=== PATIENT | female | born 1980 | race American Indian/Alaskan Native ===

== ENCOUNTER 2017-04-09 20:53 | Emergency (ER) | payer OTHER ==
[2017-04-09 21:07] VITALS: BP 116/98
[2017-04-09] MEDS ORDERED: LORazepam 2 MG/ML MDV IVPUSH ONE (21:17)
--- NOTE | 2017-04-09 22:09 | EDM.PDOC ---
ED HPI GENERAL MEDICAL PROBLEM - General Chief Complaint: Chest Pain Stated Complaint: CHEST PAIN Time Seen by Provider: 04/09/17 20:55 Source of Information: Reports: Patient History Limitations: Reports: No Limitations - History of Present Illness INITIAL COMMENTS - FREE TEXT/NARRATIVE: This is a 37-year-old female. She comes tonight because she had a sudden episode of sweating and feeling cold and being lightheaded and pressure in her left upper back. She also states that she felt short of breath. She was watching a movie at the time and denies any excessive activity. She's had no cough no fever no chills no congestion. She has been unwell putrid in which apparently cause some joint swelling and joint pain and now she is being weaned off the Wellbutrin by her doctor. She says she is on Wellbutrin for ADHD and has no history of anxiety. During the interview was noted that she sighed heavily multiple times. She has no recent illnesses that she is aware of no fever no chills no cough no congestion. She did not have any nausea or vomiting either tonight. Mid-Sternal Chest Pain Score (Numeric/FACES): 5 - Related Data Allergies Allergy/AdvReac Type Severity Reaction Status Date / Time metoclopramide HCl Allergy Swelling Verified 04/09/17 21:07 [From Reglan] Home Meds: Home Meds buPROPion HCl [Wellbutrin SR] 150 mg PO DAILY 04/09/17 [History] Past Medical History - Past Health History Medical/Surgical History: Denies Medical/Surgical History Other Gastrointestinal History: gastric bipass - Past Surgical History GI Surgical History: Reports: Bariatric Procedure, Cholecystectomy Social & Family History - Family History Family Medical History: Noncontributory Cardiac: Reports: Hypertension - Tobacco Use Smoking Status *Q: Never Smoker Second Hand Smoke Exposure: No - Caffeine Use Caffeine Use: Reports: Coffee - Alcohol Use Days Per Week of Alcohol Use: 0 - Recreational Drug Use Recreational Drug Use: No ED ROS GENERAL - Review of Systems Review Of Systems: See Below Constitutional: Denies: Fever, Chills HEENT: Reports: No Symptoms Respiratory: Reports: Shortness of Breath. Denies: Wheezing, Cough Cardiovascular: Reports: Lightheadedness. Denies: Chest Pain Endocrine: Reports: No Symptoms GI/Abdominal: Denies: Abdominal Pain, Diarrhea, Nausea, Vomiting : Reports: No Symptoms Musculoskeletal: Reports: Back Pain Skin: Reports: No Symptoms Neurological: Reports: No Symptoms Psychiatric: Reports: No Symptoms Hematologic/Lymphatic: Reports: No Symptoms ED EXAM, GENERAL - Physical Exam Exam: See Below Exam Limited By: No Limitations General Appearance: Alert, WD/WN, Anxious Eye Exam: Bilateral Eye: Normal Inspection Ears: Normal External Exam Nose: Normal Inspection Throat/Mouth: Normal Inspection, Normal Lips, Normal Voice Head: Atraumatic, Normocephalic Neck: Supple Respiratory/Chest: No Respiratory Distress, Lungs Clear, Normal Breath Sounds Cardiovascular: Regular Rate, Rhythm, No Murmur GI/Abdominal: Soft, Non-Tender Back Exam: Normal Inspection, Other (Her left upper back rhomboid muscles are very tender on palpation him and they also are somewhat tight and she describes when I palpate the area the pressure in her upper back) Extremities: Normal Inspection, Normal Range of Motion Neurological: Alert, Oriented Psychiatric: Anxious Skin Exam: Warm, Dry EKG INTERPRETATION EKG Date: 04/09/17 Time: 20:58 EKG Interpretation Comments: EKG shows a normal sinus rhythm there is no acute ST or T-wave changes no ischemic changes noted Course - Vital Signs Last Recorded V/S: Last Vital Signs Temp 97.1 F 04/09/17 21:00 Pulse 67 04/09/17 21:00 Resp 15 04/09/17 21:00 BP 116/98 H 04/09/17 21:00 Pulse Ox 100 04/09/17 21:00 - Orders/Labs/Meds Orders: Active Orders 24 hr Category Date Time Status EKG 12 Lead [EKG Documentation Completion] [RC] STAT Care 04/09/17 21:07 Active CXR [Chest 1V Frontal] [CR] Stat Exams 04/09/17 21:30 Taken Labs: Laboratory Tests 04/09/17 04/09/17 04/09/17 Range/Units 21:25 21:25 21:25 WBC 9.30 (3.98-10.04) K/mm3 RBC 4.63 (3.98-5.22) M/mm3 Hgb 13.8 (11.2-15.7) gm/L Hct 42.3 (34.1-44.9) % MCV 91.4 (79.4-94.8) fl MCH 29.8 (25.6-32.2) pg MCHC 32.6 (32.2-35.5) g/dl RDW Std Deviation 43.7 (36.4-46.3) fL Plt Count 349 (182-369) K/mm3 MPV 10.1 (9.4-12.3) fl Neut % (Auto) 58.2 (34.0-71.1) % Lymph % (Auto) 28.7 (19.3-51.7) % [place] % (Auto) 7.1 (4.7-12.5) % Eos % (Auto) 5.1 (0.7-5.8) Baso % (Auto) 0.6 (0.1-1.2) % Neut # (Auto) 5.41 (1.56-6.13) K/mm3 Lymph # (Auto) 2.67 (1.18-3.74) K/mm3 [place] # (Auto) 0.66 H (0.24-0.36) K/mm3 Eos # (Auto) 0.47 H (0.04-0.36) K/mm3 Baso # (Auto) 0.06 (0.01-0.08) K/mm3 D-Dimer, Quantitative < 0.19 L (0.19-0.59) mg/L Sodium 139 (136-145) mEq/L Potassium 3.8 (3.5-5.1) mEq/L Chloride 104 (98-107) mEq/L Carbon Dioxide 25 (21-32) mEq/L Anion Gap 13.8 (5-15) BUN 13 (7-18) mg/dL Creatinine 0.9 (0.55-1.02) mg/dL Est Cr Clr Drug Dosing 66.37 mL/min Estimated GFR (MDRD) > 60 (>60) mL/min BUN/Creatinine Ratio 14.4 (14-18) Glucose 100 (74-106) mg/dL Calcium 8.8 (8.5-10.1) mg/dL Total Bilirubin 0.2 (0.2-1.0) mg/dL AST 23 (15-37) U/L ALT 36 (14-59) U/L Alkaline Phosphatase 97 (46-116) U/L Troponin I < 0.017 (0.00-0.056) ng/mL Total Protein 8.5 H (6.4-8.2) g/dl Albumin 3.8 (3.4-5.0) g/dl Globulin 4.7 gm/dL Albumin/Globulin Ratio 0.8 L (1-2) Meds: Medications Discontinued Medications Generic Name Dose Route Start Last Admin Trade Name Jose Maria PRN Reason Stop Dose Admin Lorazepam 0.5 mg 04/09/17 21:17 04/09/17 21:29 Ativan IVPUSH 04/09/17 21:18 0.5 mg ONETIME ONE Administration - Re-Assessments/Exams Free Text/Narrative Re-Assessment/Exam: 04/09/17 23:41 I spoke to the patient regarding her test results and the lab results. The Ativan seemed to help her immensely and she was sleeping in the room. I gave her a handout from the Internet that showed the side effects from withdrawing from Wellbutrin and she apparently exhibits many of these with the sweating the cold sweats and lightheadedness the shortness of breath that comes in spells. I have encouraged her to continue with her Drs. regimen to get off the Wellbutrin but to realize she is going to have some mild side effects with it and to follow -up with her doctor next week. Departure - Departure Time of Disposition: 23:42 Disposition: Home, Self-Care 01 Condition: Good Clinical Impression: Adverse drug reaction Qualifiers: Encounter type: initial encounter Qualified Code(s): T88.7XXA - Unspecified adverse effect of drug or medicament, initial encounter Medication adverse effect Qualifiers: Encounter type: initial encounter Qualified Code(s): T88.7XXA - Unspecified adverse effect of drug or medicament, initial encounter Forms: ED Department Discharge Additional Instructions: Continue weaning off Wellbutrin but realized you are going to have some side effects periodically, follow-up with your family doctor who is treating you to see if they can start you on something while you're weaning off the Wellbutrin that will ease the side effects, return to the ER if needed - My Orders Last 24 Hours: My Active Orders 04/09/17 21:07 EKG 12 Lead [EKG Documentation Completion] [RC] STAT 04/09/17 21:30 CXR [Chest 1V Frontal] [CR] Stat - Assessment/Plan Last 24 Hours: My Active Orders 04/09/17 21:07 EKG 12 Lead [EKG Documentation Completion] [RC] STAT 04/09/17 21:30 CXR [Chest 1V Frontal] [CR] Stat
--- NOTE | 2017-04-11 08:10 | CR ---
Chest: Portable view of the chest was obtained. Comparison: Previous chest x-ray of 06/08/15. Heart size and mediastinum are normal. Lungs are clear. Surgical clips are seen within the upper abdomen. Bony structures are grossly intact. Impression: 1. Nothing acute is identified on portable chest x-ray. Diagnostic code #1
== END 2017-04-09 23:56 | disposition home or self-care (01) ==
LOC: JD.ED 20:53
DX: R06.02 Shortness of breath (principal); T43.295A Adverse effect of other antidepressants, initial encounter; Z88.8 Allergy status to other drugs, medicaments and biological substances; Z90.49 Acquired absence of other specified parts of digestive tract
CPT/HCPCS: 36415; 71010; 80053; 84484; 85025; 85379; 93005; 96374; 99285; J2060; 99284

== ENCOUNTER 2017-09-27 17:14 | Emergency (ER) | payer BC ==
[2017-09-27 17:34] VITALS: BP 118/82
[2017-09-27] MEDS ORDERED: Ondansetron 4 MG/2 ML SDV IVPUSH ONE (18:20)
[2017-09-27] MEDS ORDERED: HYDROmorphone 0.5 MG/0.5 ML Syringe IVPUSH ONE (18:20)
[2017-09-27] MEDS ORDERED: Sodium Chloride 0.9% 1,000 ML IV ONE (18:20)
[2017-09-27] MEDS ORDERED: Sodium Chloride 0.9% 10 ML Syringe FLUSH PRN ×2 (18:20→20:39)
--- NOTE | 2017-09-27 19:09 | EDM.PDOC ---
ED HPI GENERAL MEDICAL PROBLEM - General Chief Complaint: Abdominal Pain Stated Complaint: SENT BY [facility] FOR PAIN UNDER L BREAST Time Seen by Provider: 09/27/17 18:10 Source of Information: Reports: Patient History Limitations: Reports: No Limitations - History of Present Illness INITIAL COMMENTS - FREE TEXT/NARRATIVE: 37 year old female presets for evaluation and treatment of abdominal pain, nausea and diarrhea. Patient presented to the [facility] but was sent over to us for further care. Patient reports she has not been feeling well for the last few weeks. Reports over the last day she has now had abdominal pain, nausea and diarrhea. She is still passing gas. Reports abdominal pain in the epigastric and left upper quadrant. 3 episodes of diarrhea thus far. No melena or hematochezia. Nausea but no vomiting. No fevers or cough. Patient reports feeling bloated. no recent travel. previous abdominal surgeries include gastric bypass and a cholecystectomy. Left Abdomen Pain Score (Numeric/FACES): 9 - Related Data Allergies Allergy/AdvReac Type Severity Reaction Status Date / Time metoclopramide HCl Allergy Swelling Verified 09/27/17 17:33 [From Reglan] Home Meds: Home Meds Ondansetron [Zofran ODT] 4 mg PO Q6H PRN #12 tab.dis 09/27/17 [Rx] Venlafaxine [Effexor XR] 150 mg PO DAILY 09/27/17 [History] Past Medical History - Past Health History Medical/Surgical History: Denies Medical/Surgical History Other Gastrointestinal History: gastric bipass [employer] History: Reports: - Past Surgical History GI Surgical History: Reports: Bariatric Procedure, Cholecystectomy Social & Family History - Family History Family Medical History: Noncontributory Cardiac: Reports: Hypertension - Tobacco Use Smoking Status *Q: Never Smoker Second Hand Smoke Exposure: No - Caffeine Use Caffeine Use: Reports: Coffee - Alcohol Use Days Per Week of Alcohol Use: 0 - Recreational Drug Use Recreational Drug Use: No ED ROS GENERAL - Review of Systems Review Of Systems: See Below Constitutional: Reports: Malaise, Decreased Appetite. Denies: Fever Respiratory: Denies: Cough GI/Abdominal: Reports: Abdominal Pain (epigastic and LUQ pain), Diarrhea, Decreased Appetite, Distension, Flatus (continues to pass gas ), Nausea. Denies : Hematochezia, Melena, Vomiting : Reports: No Symptoms ED EXAM, GI/ABD - Physical Exam Exam: See Below Exam Limited By: No Limitations General Appearance: Alert, WD/WN, No Apparent Distress Throat/Mouth: Normal Inspection, Normal Voice, No Airway Compromise Neck: Normal Inspection Respiratory/Chest: No Respiratory Distress, Lungs Clear, Normal Breath Sounds Cardiovascular: Normal Peripheral Pulses, Regular Rate, Rhythm, No Murmur GI/Abdominal Exam: Normal Bowel Sounds, Soft, Distended, Guarding, Tender ( epigastric and LUQ). No: Rigid, Rebound Neurological: Alert, Oriented, Normal Cognition Psychiatric: Normal Affect, Normal Mood Skin Exam: Warm, Dry, Normal Color Course - Vital Signs Last Recorded V/S: Last Vital Signs Temp 36.9 C 09/27/17 17:29 Pulse 73 09/27/17 17:29 Resp 13 09/27/17 17:29 BP 118/82 09/27/17 17:29 Pulse Ox 100 09/27/17 17:29 - Orders/Labs/Meds Labs: Laboratory Tests 09/27/17 09/27/17 09/27/17 Range/Units 19:28 19:38 19:38 WBC 6.53 (3.98-10.04) K/mm3 RBC 4.11 (3.98-5.22) M/mm3 Hgb 11.9 (11.2-15.7) gm/L Hct 37.4 (34.1-44.9) % MCV 91.0 (79.4-94.8) fl MCH 29.0 (25.6-32.2) pg MCHC 31.8 L (32.2-35.5) g/dl RDW Std Deviation 44.8 (36.4-46.3) fL Plt Count 343 (182-369) K/mm3 MPV 10.0 (9.4-12.3) fl Neutrophils % (Manual) 45 (40-60) % Band Neutrophils % 0 (0-10) % Lymphocytes % (Manual) 41 H (20-40) % Atypical Lymphs % 0 % Monocytes % (Manual) 8 (2-10) % Eosinophils % (Manual) 5 (0.7-5.8) % Basophils % (Manual) 1 (0.1-1.2) Platelet Estimate Adequate Plt Morphology Comment Normal RBC Morph Comment Normal Sodium 142 (136-145) mEq/L Potassium 4.1 (3.5-5.1) mEq/L Chloride 107 (98-107) mEq/L Carbon Dioxide 27 (21-32) mEq/L Anion Gap 12.1 (5-15) BUN 10 (7-18) mg/dL Creatinine 0.6 (0.55-1.02) mg/dL Est Cr Clr Drug Dosing 99.56 mL/min Estimated GFR (MDRD) > 60 (>60) mL/min BUN/Creatinine Ratio 16.7 (14-18) Glucose 90 (74-106) mg/dL Calcium 8.5 (8.5-10.1) mg/dL Total Bilirubin 0.3 (0.2-1.0) mg/dL AST 28 (15-37) U/L ALT 31 (14-59) U/L Alkaline Phosphatase 88 (46-116) U/L C-Reactive Protein < 0.2 (<1.0) mg/dL Total Protein 6.9 (6.4-8.2) g/dl Albumin 3.2 L (3.4-5.0) g/dl Globulin 3.7 gm/dL Albumin/Globulin Ratio 0.9 L (1-2) Lipase 220 (73-393) U/L Urine Color Yellow (Yellow) Urine Appearance Clear (Clear) Urine pH 7.5 (5.0-8.0) Ur Specific [place] 1.020 (1.005-1.030) Urine Protein Negative (Negative) Urine Glucose (UA) Negative (Negative) Urine Ketones Negative (Negative) Urine Occult Blood Negative (Negative) Urine Nitrite Negative (Negative) Urine Bilirubin Negative (Negative) Urine Urobilinogen 0.2 (0.2-1.0) Ur Leukocyte Esterase Negative (Negative) Urine RBC Not seen (0-5) /hpf Urine WBC 0-5 (0-5) /hpf Ur Epithelial Cells 0-5 (0-5) /hpf Urine Bacteria Rare (FEW) /hpf Urine Mucus Not seen (FEW) /hpf Meds: Medications Discontinued Medications Generic Name Dose Route Start Last Admin Trade Name Freq PRN Reason Stop Dose Admin Diatrizoate Meglum/Diatrizoate Sod 90 ml 09/27/17 20:39 09/27/17 21:34 Gastrografin 37% PO 09/27/17 20:40 90 ml ONETIME ONE Administration Famotidine 20 mg 09/27/17 20:53 09/27/17 22:16 Pepcid IVPUSH 09/27/17 20:54 20 mg ONETIME ONE Administration Hydromorphone HCl 0.5 mg 09/27/17 18:20 09/27/17 19:26 Dilaudid IVPUSH 09/27/17 18:21 0.5 mg ONETIME ONE Administration Sodium Chloride 1,000 mls @ 999 mls/hr 09/27/17 18:20 09/27/17 19:22 Normal Saline IV 09/27/17 19:20 999 mls/hr ONETIME ONE Administration Iopamidol 125 ml 09/27/17 20:39 09/27/17 21:34 Isovue-300 (61%) IVPUSH 09/27/17 20:40 125 ml ONETIME ONE Administration Ketorolac Tromethamine 30 mg 09/27/17 20:53 09/27/17 22:15 Toradol IVPUSH 09/27/17 20:54 30 mg ONETIME ONE Administration Ondansetron HCl 4 mg 09/27/17 18:20 09/27/17 19:24 Zofran IVPUSH 09/27/17 18:21 4 mg ONETIME ONE Administration Sodium Chloride 10 ml 09/27/17 18:20 09/27/17 19:20 Saline Flush FLUSH 10 ml ASDIRECTED PRN Administration Keep Vein Open Sodium Chloride 10 ml 09/27/17 20:39 09/27/17 21:34 Saline Flush FLUSH 10 ml ONETIME PRN Administration IV FLUSH - Radiology Interpretation Free Text/Narrative:: CT of the abdomen and pelvis with contrast impression per [facility]: No acute findings. - Re-Assessments/Exams Free Text/Narrative Re-Assessment/Exam: 09/27/17 22:24 I reviewed the labs and CT results with the patient. Likely viral gastroenteritis causing symptoms. Will discharge home at this time. Discharge instructions as documented. Departure - Departure Time of Disposition: 22:24 Disposition: Home, Self-Care 01 Condition: Good Clinical Impression: Viral gastroenteritis - Discharge Information Prescriptions: Ondansetron [Zofran ODT] 4 mg PO Q6H PRN #12 tab.dis PRN Reason: Nausea Instructions: Viral Gastroenteritis, Adult Referrals: PCP,None [Primary Care Provider] - Jackie Betancur NP [Ordering Only Provider] - Forms: ED Department Discharge, ED Return to Work/School Form Additional Instructions: you were given medication in the ER that can affect your ability to drive and operate machinery. Do not drive or operative machinery within 12 hours taking perception chronic pain medications. [id number] Tylenol or Motrin as needed for pain relief. Zofran 1 tab sublingual every 6-8 hours as needed for nausea. Recommend starting a probiotic. These are available [id number]. Clear liquids today and tomorrow. May advance to a bland diet as tolerated on . Worth diet recommendations include bread, rice, applesauce, toast, yogurt, egg whites, etc. Expect to be ill for about the next week. If your symptoms persist beyond one- week follow-up with your family medicine provider. Please return to the ER if your symptoms change or worsen.
[2017-09-27] MEDS ORDERED: Diatrizoate Meglumine/Diatrizoate Sodium 37% 120 ML Bottle PO ONE (20:39)
[2017-09-27] MEDS ORDERED: Iopamidol 612 MG/ML 150 ML Bottle IVPUSH ONE (20:39)
[2017-09-27] MEDS ORDERED: Ketorolac 30 MG/ML SDV IVPUSH ONE (20:53)
[2017-09-27] MEDS ORDERED: Famotidine 20 MG/2 ML SDV IVPUSH ONE (20:53)
--- NOTE | 2017-09-28 08:43 | CT ---
CT abdomen and pelvis Technique: Multiple axial sections were obtained from above the dome of the diaphragm inferiorly through the pubic symphysis. Intravenous and oral contrast was utilized. Delayed images were obtained through the bladder. Comparison: No prior abdominal imaging. Findings: Visualized lung bases show nothing acute. Liver shows no focal parenchymal abnormality. Surgical clips are seen from prior cholecystectomy. Surgical clips are noted from prior stomach surgery. Adrenal glands show no nodule. Spleen size is normal. Kidneys show symmetric contrast enhancement. Minimal cortical cyst measuring about 5 mm seen within the right kidney. Aorta shows no aneurysmal dilatation. No retroperitoneal adenopathy or mesenteric abnormalities are seen. No pelvic mass or adenopathy is seen. Appendix not definitely visualized. No free fluid or inflammatory changes seen. Delayed images show contrast within the distal ureters and bladder. Bone window settings show mild disc space narrowing at L5-S1 with vacuum phenomena. Impression: 1. Incidental findings. Nothing acute is appreciated on CT study of the abdomen and pelvis. Diagnostic code #2 I agree with preliminary report issued by [facility] ([facility] preliminary report dictated on 09/27/17, 10:48 PM Central Time)
== END 2017-09-27 22:40 | disposition home or self-care (01) ==
LOC: JD.ED 17:14
DX: A08.4 Viral intestinal infection, unspecified (principal); Z79.899 Other long term (current) drug therapy; Z88.8 Allergy status to other drugs, medicaments and biological substances
CPT/HCPCS: 36415; 74177; 80053; 81001; 83690; 85025; 86140; 87804; 96361; 96374; 96375; 99284; J1170; J1885; J2405; J7040; J7050; Q9963; Q9967

== ENCOUNTER 2017-10-31 13:20 | Emergency (ER) | payer BC ==
[2017-10-31 13:32] VITALS: BP 118/84
[2017-10-31] MEDS ORDERED: Sodium Chloride 0.9% 1,000 ML IV ONE (13:53)
[2017-10-31] MEDS ORDERED: Sodium Chloride 0.9% 10 ML Syringe FLUSH PRN (13:53)
[2017-10-31] MEDS ORDERED: Ondansetron 4 MG/2 ML SDV IVPUSH ONE (13:53)
--- NOTE | 2017-10-31 14:01 | EDM.PDOC ---
ED HPI GENERAL MEDICAL PROBLEM - General Chief Complaint: Chest Pain Stated Complaint: CHEST PAIN/DIARRHEA/FEVER Time Seen by Provider: 10/31/17 13:43 Source of Information: Reports: Patient History Limitations: Reports: No Limitations - History of Present Illness INITIAL COMMENTS - FREE TEXT/NARRATIVE: Patient is a 37-year-old female presents ED complaining of shortness of breath with exertion, left sided chest pain, nausea/vomiting, epigastric pain, and diarrhea. Patient states symptoms came on this morning abruptly have progressively got worse throughout the course of the day. Has been unable to keep any fluids down. Has vomited approximate 4 times multiple episodes of diarrhea. No blood within the emesis or diarrhea. Has felt warm at times with no documented fever. There has been recent sick exposures from her children with similar symptoms. She is dizzy with standing. Has a history of diabetes and hypertension. As well as is a history of first degree relatives with coronary artery disease. She has no history of recent surgeries, hospitalization , confinement to bed, cancer, smoking, contraceptive use, DVT/PE, or any additional complaints. Chest Pain Score (Numeric/FACES): 7 - Related Data Allergies Allergy/AdvReac Type Severity Reaction Status Date / Time metoclopramide HCl Allergy Swelling Verified 10/31/17 13:31 [From Reglan] Home Meds: Home Meds Levothyroxine. 1 tab PO DAILY 10/31/17 [History] Ondansetron [Zofran ODT] 4 mg PO Q6H PRN #15 tab.dis 10/31/17 [Rx] Trintellix. 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: Psychiatric History: Reports: Depression Endocrine/Metabolic History: Reports: Hypothyroidism - Past Surgical History GI Surgical History: Reports: Bariatric Procedure, Cholecystectomy Social & Family History - Family History Family Medical History: Noncontributory Cardiac: Reports: Hypertension - Tobacco Use Smoking Status *Q: Never Smoker Second Hand Smoke Exposure: No - Caffeine Use Caffeine Use: Reports: None - Alcohol Use Days Per Week of Alcohol Use: 0 - Recreational Drug Use Recreational Drug Use: No ED ROS GENERAL - Review of Systems Review Of Systems: See Below Constitutional: Reports: Fever, Malaise, Decreased Appetite HEENT: Reports: No Symptoms Respiratory: Reports: Shortness of Breath, Pleuritic Chest Pain, Cough. Denies : Sputum Cardiovascular: Reports: Chest Pain, Dyspnea on Exertion, Lightheadedness, Palpitations, PND. Denies: Syncope GI/Abdominal: Reports: Abdominal Pain, Diarrhea, Decreased Appetite, Nausea, Vomiting. Denies: Black Stool, Bloody Stool, Constipation, Difficulty Swallowing, Melena : Reports: No Symptoms Musculoskeletal: Reports: Muscle Pain (generalized) Skin: Reports: No Symptoms Neurological: Reports: Dizziness ED EXAM, GENERAL - Physical Exam Exam: See Below Exam Limited By: No Limitations General Appearance: Alert, WD/WN, Mild Distress Ears: Hearing Grossly Normal Nose: Normal Inspection Throat/Mouth: Normal Voice, No Airway Compromise, Other (dry oral mucosa) Neck: Normal Inspection, Supple Respiratory/Chest: No Respiratory Distress, Lungs Clear, Normal Breath Sounds, No Accessory Muscle Use, Other (tenderness to the left sternal/lateral chest.) Cardiovascular: Normal Peripheral Pulses, No JVD, No Murmur, Tachycardia Peripheral Pulses: 4+: Radial (L), Radial (R) GI/Abdominal: Normal Bowel Sounds, Soft, No Organomegaly, No Distention, Tender (epigastric region) Back Exam: Normal Inspection Extremities: Normal Inspection, Non-Tender, No Pedal Edema, Normal Capillary Refill Neurological: Alert, Oriented, CN II-XII Intact, Normal Cognition, No Motor/ Sensory Deficits Psychiatric: Normal Affect, Normal Mood Skin Exam: Warm, Dry, Intact, Normal Color Course - Vital Signs Last Recorded V/S: Last Vital Signs Temp 97.9 F 10/31/17 13:28 Pulse 108 H 10/31/17 13:28 Resp 15 10/31/17 13:28 BP 118/84 10/31/17 13:28 Pulse Ox 100 10/31/17 13:28 - Orders/Labs/Meds Orders: Active Orders 24 hr Category Date Time Status EKG Documentation Completion [RC] STAT Care 10/31/17 13:53 Active Orthostatic Vital Signs [RC] ASDIRECTED Care 10/31/17 13:59 Active Peripheral IV Care [RC] . DIRECTED Care 10/31/17 13:54 Active UA W/MICROSCOPIC [URIN] Stat Lab 10/31/17 13:53 Uncollected Sodium Chloride 0.9% [Saline Flush] Med 10/31/17 13:53 Active 10 ml FLUSH ASDIRECTED PRN Peripheral IV Insertion Adult [OM.PC] Stat Oth 10/31/17 13:53 Ordered Medication Orders Sodium Chloride (Saline Flush) 10 ml FLUSH ASDIRECTED PRN PRN Reason: Keep Vein Open Last Admin: 10/31/17 14:10 Dose: 10 ml Labs: Laboratory Tests 10/31/17 10/31/17 10/31/17 Range/Units 14:05 14:05 14:05 WBC 13.40 H (3.98-10.04) K/mm3 RBC 4.58 (3.98-5.22) M/mm3 Hgb 13.3 (11.2-15.7) gm/L Hct 41.6 (34.1-44.9) % MCV 90.8 (79.4-94.8) fl MCH 29.0 (25.6-32.2) pg MCHC 32.0 L (32.2-35.5) g/dl RDW Std Deviation 46.4 H (36.4-46.3) fL Plt Count 373 H (182-369) K/mm3 MPV 9.7 (9.4-12.3) fl Neut % (Auto) 87.9 H (34.0-71.1) % Lymph % (Auto) 2.9 L (19.3-51.7) % Stewart % (Auto) 6.3 (4.7-12.5) % Eos % (Auto) 2.6 (0.7-5.8) Baso % (Auto) 0.1 (0.1-1.2) % Neut # (Auto) 11.76 H (1.56-6.13) K/mm3 Lymph # (Auto) 0.39 L (1.18-3.74) K/mm3 Stewart # (Auto) 0.85 H (0.24-0.36) K/mm3 Eos # (Auto) 0.35 (0.04-0.36) K/mm3 Baso # (Auto) 0.02 (0.01-0.08) K/mm3 Manual Slide Review Normal smear D-Dimer, Quantitative 0.59 (0.19-0.59) mg/L Sodium 137 (136-145) mEq/L Potassium 4.0 (3.5-5.1) mEq/L Chloride 102 (98-107) mEq/L Carbon Dioxide 22 (21-32) mEq/L Anion Gap 17.0 H (5-15) BUN 18 (7-18) mg/dL Creatinine 0.7 (0.55-1.02) mg/dL Est Cr Clr Drug Dosing 85.34 mL/min Estimated GFR (MDRD) > 60 (>60) mL/min BUN/Creatinine Ratio 25.7 H (14-18) Glucose 108 H (74-106) mg/dL Calcium 8.4 L (8.5-10.1) mg/dL Total Bilirubin 0.4 (0.2-1.0) mg/dL AST 39 H (15-37) U/L ALT 50 (14-59) U/L Alkaline Phosphatase 86 (46-116) U/L Troponin I < 0.017 (0.00-0.056) ng/mL C-Reactive Protein 0.4 (<1.0) mg/dL Total Protein 7.5 (6.4-8.2) g/dl Albumin 3.4 (3.4-5.0) g/dl Globulin 4.1 gm/dL Albumin/Globulin Ratio 0.8 L (1-2) Lipase 168 (73-393) U/L TSH 3rd Generation 0.850 (0.358-3.74) uIU/mL Meds: Medications Generic Name Dose Route Start Last Admin Trade Name Jose Maria PRN Reason Stop Dose Admin Sodium Chloride 10 ml 10/31/17 13:53 10/31/17 14:10 Saline Flush FLUSH 10 ml ASDIRECTED PRN Administration Keep Vein Open Discontinued Medications Generic Name Dose Route Start Last Admin Trade Name Freq PRN Reason Stop Dose Admin Sodium Chloride 1,000 mls @ 999 mls/hr 10/31/17 13:53 10/31/17 14:09 Normal Saline IV 10/31/17 14:53 999 mls/hr ONETIME ONE Administration Ondansetron HCl 4 mg 10/31/17 13:53 10/31/17 14:10 Zofran IVPUSH 10/31/17 13:54 4 mg ONETIME ONE Administration - Re-Assessments/Exams Free Text/Narrative Re-Assessment/Exam: IV established with normal saline 999 mls per hour, Zofran 4 mg IVP. Initial labs and studies include CBC, chem 14, CRP, lipase, d-dimer, influenza A &B screen, TSH, UA, EKG, and chest x-ray one view. 10/31/17 15:05 chest x-ray revealed nothing acute is identified on portable chest x-ray. EKG sinus tachycardia rate of [address] changes noted. 10/31/17 15:06 Labs reviewed: White blood cell count 13.40, hemoglobin 13.3, platelet count 373, neutrophil percentage is 87.9, neutrophil #11.76, d-dimer 0.59, sodium and potassium within normal limits, crit 0.7, AST mildly elevated at 39, troponin less than 0.017, lipase 168, TSH 0.850. Influenza screen was negative. Nausea has improved. Will discharge patient home with instructions as documented. Departure - Departure Time of Disposition: 15:28 Disposition: Home, Self-Care 01 Condition: Good Clinical Impression: Gastroenteritis, Atypical chest pain Prescriptions: Ondansetron [Zofran ODT] 4 mg PO Q6H PRN #15 tab.dis PRN Reason: Nausea/Vomiting Instructions: Viral Gastroenteritis, Adult, [id number], Nonspecific Chest Pain, [id number] Referrals: Jackie Betancur, ADMINISTRATIVE SUPPORT ASSOCIATE [Primary Care Provider] - Forms: ED Department Discharge, ED Return to Work/School Form Additional Instructions: As discussed. Believe he had gastroenteritis which is a viral infection will resolve on its own accord over the next few days. Treatment at this point will include Zofran 4 mg every 6 hours as needed for nausea and vomiting. Push the fluids. Advance to bland diet when able. Refrain from dairy products, raw fruits or vegetables, spicy foods, or any other foods that cause aggravation. Once symptoms have subsided May advance to normal diet as tolerated. Follow-up with your primary care provider this next week for reevaluation if symptoms persist. Return to the ED if you develop any new or worsening symptoms. Pain to the chest muscle skeletal in nature treatment will include Tylenol and ibuprofen in alternating fashion as needed. - My Orders Last 24 Hours: My Active Orders 10/31/17 13:53 EKG Documentation Completion [RC] STAT UA W/MICROSCOPIC [URIN] Stat Sodium Chloride 0.9% [Saline Flush] 10 ml FLUSH ASDIRECTED PRN Peripheral IV Insertion Adult [OM.PC] Stat 10/31/17 13:54 Peripheral IV Care [RC] . DIRECTED 10/31/17 13:59 Orthostatic Vital Signs [RC] ASDIRECTED - Assessment/Plan Last 24 Hours: My Active Orders 10/31/17 13:53 EKG Documentation Completion [RC] STAT UA W/MICROSCOPIC [URIN] Stat Sodium Chloride 0.9% [Saline Flush] 10 ml FLUSH ASDIRECTED PRN Peripheral IV Insertion Adult [OM.PC] Stat 10/31/17 13:54 Peripheral IV Care [RC] . DIRECTED 10/31/17 13:59 Orthostatic Vital Signs [RC] ASDIRECTED
--- NOTE | 2017-10-31 14:37 | CR ---
Chest: Portable view of the chest was obtained. Comparison: Prior chest x-ray of 04/09/17. Heart size and mediastinum are within normal limits. Lungs are clear. Bony structures are grossly intact. Impression: 1. Nothing acute is identified on portable chest x-ray. Diagnostic code #1
== END 2017-10-31 15:47 | disposition home or self-care (01) ==
LOC: JD.ED 13:20
DX: K52.9 Noninfective gastroenteritis and colitis, unspecified (principal); R07.89 Other chest pain; F32.9 Major depressive disorder, single episode, unspecified; E03.9 Hypothyroidism, unspecified; Z79.899 Other long term (current) drug therapy; Z88.8 Allergy status to other drugs, medicaments and biological substances
CPT/HCPCS: 36415; 71045; 80053; 83690; 84443; 84484; 85025; 85379; 86140; 87804; 93005; 96361; 96374; 99285; J2405; J7040; J7050; 99284

== ENCOUNTER 2018-06-16 00:01 | Emergency (ER) | payer BC ==
[2018-06-16 00:13] VITALS: BP 138/100
--- NOTE | 2018-06-16 01:31 | EDM.PDOC ---
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 ED EXAM, GENERAL - Physical Exam Exam: See Below Course - Vital Signs Last Recorded V/S: Last Vital Signs Temp 36.9 C 06/16/18 00:10 Pulse 117 H 06/16/18 00:10 Resp 16 06/16/18 00:10 BP 138/100 H 06/16/18 00:10 Pulse Ox 98 06/16/18 00:10 - Orders/Labs/Meds Orders: Active Orders 24 hr Category Date Time Status Hand 2V Lt [CR] Stat Exams 06/16/18 00:44 Taken Wrist Comp Min 3V Lt [CR] Stat Exams 06/16/18 00:21 Taken Wrist Comp Min 3V Rt [CR] Stat Exams 06/16/18 00:21 Taken Departure - Departure Time of Disposition: 01:29 Disposition: Home, Self-Care 01 Clinical Impression: Contusion of forearm, left Qualifiers: Encounter type: initial encounter Qualified Code(s): S50.12XA - Contusion of left forearm, initial encounter - Discharge Information *PRESCRIPTION DRUG MONITORING PROGRAM REVIEWED*: Not Applicable *COPY OF PRESCRIPTION DRUG MONITORING REPORT IN PATIENT MONICA: Not Applicable Referrals: PCP,None [Primary Care Provider] - Additional Instructions: Ice and ibuprofen as discussed. - My Orders Last 24 Hours: My Active Orders 06/16/18 00:21 Wrist Comp Min 3V Lt [CR] Stat Wrist Comp Min 3V Rt [CR] Stat 06/16/18 00:44 Hand 2V Lt [CR] Stat - Assessment/Plan Last 24 Hours: My Active Orders 06/16/18 00:21 Wrist Comp Min 3V Lt [CR] Stat Wrist Comp Min 3V Rt [CR] Stat 06/16/18 00:44 Hand 2V Lt [CR] Stat
--- NOTE | 2018-06-16 03:36 | ER ---
REASON FOR EMERGENCY ROOM VISIT: Bilateral forearm pain. HISTORY OF PRESENT ILLNESS: This 38-year-old woman comes in accompanied by other family members after falling and sustaining some injury to both forearms just proximal to the wrist areas. She apparently was going down some stairs carrying a bag of laundry when she tripped and fell forward striking her forearms against the wall. Somehow, although the history is somewhat vague. She sustained some mild trauma to her left forearm just above the wrist and to a significantly more degree she had traumatized her right wrist. She also had some pain in the middle and ring fingers of her left hand near the tips of the fingers. She denies any other trauma to these areas. PAST MEDICAL HISTORY: Reviewed. See EMR. CURRENT MEDICATIONS: Reviewed. See EMR. ALLERGIES: Reviewed. See EMR. PHYSICAL EXAMINATION: VITALS: See EMR. EXTREMITIES: She has some soft tissue swelling proximal to both wrists, more noticeable on the right than on the left. It seems to be maximally tender between the radius and ulna. There is no disfigurement or bony abnormality. There is no bony crepitus. Sensation and motor function in the fingers distally is normal. Passive range of motion is somewhat impaired because of the pain just proximal to the wrist bilaterally. DIAGNOSTIC DATA: X-rays were obtained of both wrists bilaterally as well as the left hand and these were all negative for any sign of fracture or dislocation. IMPRESSION: Contusions both distal forearms with no evidence of fracture. PLAN: I recommended application of ice and ibuprofen as well as limitation of activity until pain and swelling subsides. I advised her to followup with her PCP. All questions were answered. She understands and agrees. AGUILAR /[id number] JAQUAN
--- NOTE | 2018-06-20 14:07 | CR ---
Right wrist: Four views of the right wrist were obtained. Comparison: No prior study. Joint spaces are maintained. No fracture, dislocation or other bony abnormality is seen. Impression: 1. No bony abnormality is identified on right wrist exam. Diagnostic code #1
--- NOTE | 2018-06-20 14:07 | CR ---
Left wrist: Four views of the left wrist were obtained. Comparison: No prior left wrist exam. Joint spaces are maintained. No fracture, dislocation or other bony abnormality is seen. Impression: 1. No abnormality is identified on left wrist exam. Diagnostic code #1
== END 2018-06-16 01:48 | disposition home or self-care (01) ==
LOC: JD.ED 00:01
DX: S50.12XA Contusion of left forearm, initial encounter (principal); S50.11XA Contusion of right forearm, initial encounter; Z88.8 Allergy status to other drugs, medicaments and biological substances; W01.198A Fall on same level from slipping, tripping and stumbling with subsequent striking against other object, initial encounter
CPT/HCPCS: 73110-26-LT; 73110-26-RT; 73110-LT; 73110-RT; 73120-LT; 99283

== ENCOUNTER 2020-01-03 22:02 | Emergency (ER) | payer BC, OTHER ==
[2020-01-03 22:20] VITALS: BP 131/92; PULSE 104
--- NOTE | 2020-01-03 23:07 | EDM.PDOC ---
ED HPI GENERAL MEDICAL PROBLEM - General Chief Complaint: Respiratory Problem Stated Complaint: COUGHING,SOB Time Seen by Provider: 01/03/20 22:46 Source of Information: Reports: Patient History Limitations: Reports: No Limitations - History of Present Illness INITIAL COMMENTS - FREE TEXT/NARRATIVE: Mrs. Cardoza is a very pleasant 39-year-old woman with a past medical history significant for ADHD, depression, anxiety, and hypothyroidism, all untreated, who now presents to the ED after developing a fever this past Tuesday, 2019. Her Tmax was 102 degrees on Tuesday, although she has been afebrile today. She was seen at the walk-in clinic that same day. The patient tells me that an influenza swab returned negative. No other tests were done. She was prescribed a cough medicine pill, whose name she does not recall. Patient states that she then developed a nonproductive cough on 01/01/2020, then dyspnea today. She also reports some tenderness to her left neck that developed last night. The patient is concerned, because she met with a friend from [facility] 2 weeks ago. The patient's friend was not ill at the time, and the patient does not know if she has since become ill. The patient herself, has not had any recent travel. The patient denies recent chest pain, palpitations, nausea, vomiting, constipation, diarrhea, abdominal pain, urinary symptoms, recent weight gain or weight loss, recent bloody bowel movements or black bowel movements, recent joint aches, headaches, or rashes. The patient has been taking the prescription cough pills, along with over-the- counter Delsym, and hot tea. None have helped with her symptoms. Here in the ED, the patient is found to be slightly tachycardic at 104 bpm, but is otherwise hemodynamically stable, afebrile, saturating 96% on room air. The patient's PCP is Dr. Shelly Dickerson. She received an influenza vaccine this season. Left Neck Pain Score (Numeric/FACES): 5 - Related Data Allergies Allergy/AdvReac Type Severity Reaction Status Date / Time metoclopramide HCl Allergy Swelling Verified 01/03/20 22:19 [From Reglan] Home Meds: Home Meds Sucralfate [Carafate] 1 gm PO DAILY 01/03/20 [History] Amoxicillin 2 tab PO Q8H #60 tablet 01/04/20 [Rx] Azithromycin 1 tab PO QPM #4 tablet 01/04/20 [Rx] Past Medical History Psychiatric History: Reports: ADHD (untreated), Anxiety (untreated), Depression (untreated) Endocrine/Metabolic History: Reports: Hypothyroidism (untreated), Obesity/BMI 30 + - Past Surgical History HEENT Surgical History: Reports: Adenoidectomy, Oral Surgery (all lower teeth extracted), Tonsillectomy GI Surgical History: Reports: Bariatric Procedure (gastric bypass 2003), Cholecystectomy (1995) Female Surgical History: Reports: Section (x 2) Social & Family History - Family History Family Medical History: Noncontributory Cardiac: Reports: Hypertension - Tobacco Use Smoking Status *Q: Never Smoker - Caffeine Use Caffeine Use: Reports: Coffee - Alcohol Use Alcohol Use History: Yes Alcohol Use Frequency: Socially - Recreational Drug Use Recreational Drug Use: Yes Drug Use in Last 12 Months: No Recreational Drug Type: Reports: Marijuana/Hashish (last smioked 1995) - Living Situation & Occupation Living situation: Reports: , with Spouse, with Family (2 kids) Occupation: Employed ([employer]) ED ROS GENERAL - Review of Systems Review Of Systems: Comprehensive ROS is negative, except as noted in HPI. ED EXAM, GENERAL - Physical Exam Exam: See Below Exam Limited By: No Limitations General Appearance: Alert, WD/WN, No Apparent Distress Eye Exam: Bilateral Eye: EOMI, Normal Inspection Ears: Normal External Exam, Normal Canal, Hearing Grossly Normal, Normal TMs Nose: Normal Inspection, Normal Mucosa, No Blood Throat/Mouth: Normal Inspection, Normal Lips, Normal Teeth, Normal Gums, Normal Oropharynx, Normal Voice, No Airway Compromise Head: Atraumatic, Normocephalic Neck: Normal Inspection, Supple, Full Range of Motion, Lymphadenopathy (L) (mild , tender, posterior cervical chain). No: Lymphadenopathy (R) Respiratory/Chest: No Respiratory Distress, Lungs Clear, Normal Breath Sounds, No Accessory Muscle Use. No: Decreased Breath Sounds, Crackles, Rhonchi, Wheezing, Stridor, Prolonged Expiration Cardiovascular: Normal Peripheral Pulses, Regular Rate, Rhythm, No Gallop, No JVD, No Murmur, No Rub GI/Abdominal: Normal Bowel Sounds, Soft, Non-Tender, No Organomegaly, No Distention, No Abnormal Bruit, No Mass (Female) Exam: Deferred Rectal (Female) Exam: Deferred Back Exam: Normal Inspection, Full Range of Motion, NT Extremities: Normal Inspection, Normal Range of Motion, Normal Capillary Refill Neurological: Alert, Oriented, Normal Cognition, No Motor/Sensory Deficits Psychiatric: Normal Affect Skin Exam: Warm, Dry, Intact, Normal Color, No Rash Course - Vital Signs Last Recorded V/S: Last Vital Signs Temp 37.7 C 01/03/20 22:10 Pulse 104 H 01/03/20 22:10 Resp 20 01/03/20 22:10 BP 131/92 H 01/03/20 22:10 Pulse Ox 96 01/03/20 22:10 - Orders/Labs/Meds Orders: Active Orders 24 hr Category Date Time Status Chest 2V [CR] Stat Exams 01/03/20 23:02 Taken CORONAVIRUS (COVID-19) PCR [MREF] Stat Lab 01/03/20 23:09 Received CULTURE BLOOD [BC] Stat Lab 01/04/20 00:27 Received CULTURE BLOOD [BC] Stat Lab 01/04/20 00:57 Received Blood Culture x2 Reflex Set [OM.PC] Stat Oth 01/03/20 23:59 Ordered Isolation [COMM] Routine Oth 01/03/20 23:02 Ordered Labs: Laboratory Tests 01/04/20 01/04/20 01/04/20 Range/Units 00:57 00:57 00:57 WBC 10.45 H (3.98-10.04) K/mm3 RBC 4.72 (3.98-5.22) M/mm3 Hgb 13.9 (11.2-15.7) gm/dl Hct 42.9 (34.1-44.9) % MCV 90.9 (79.4-94.8) fl MCH 29.4 (25.6-32.2) pg MCHC 32.4 (32.2-35.5) g/dl RDW Std Deviation 44.2 (36.4-46.3) fL Plt Count 335 (182-369) K/mm3 MPV 9.7 (9.4-12.3) fl Neutrophils % (Manual) 79 H (40-60) % Band Neutrophils % 0 (0-10) % Lymphocytes % (Manual) 12 L (20-40) % Atypical Lymphs % 0 % Monocytes % (Manual) 9 (2-10) % Eosinophils % (Manual) 0 L (0.7-5.8) % Basophils % (Manual) 0 L (0.1-1.2) Platelet Estimate Adequate RBC Morph Comment Normal PT 10.9 (9.7-12.0) SECONDS INR 1.00 APTT 26 (22-31) SECONDS D-Dimer, Quantitative 0.90 H (0.19-0.50) mg/L Sodium 137 (136-145) mEq/L Potassium 4.1 (3.5-5.1) mEq/L Chloride 102 (98-107) mEq/L Carbon Dioxide 25 (21-32) mEq/L Anion Gap 14.1 (5-15) BUN 4 L (7-18) mg/dL Creatinine 0.7 (0.55-1.02) mg/dL Est Cr Clr Drug Dosing 83.65 mL/min Estimated GFR (MDRD) > 60 (>60) mL/min BUN/Creatinine Ratio 5.7 L (14-18) Glucose 113 H (74-106) mg/dL Lactic Acid (0.4-2.0) mmol/L Calcium 9.1 (8.5-10.1) mg/dL Total Bilirubin 0.2 (0.2-1.0) mg/dL AST 26 (15-37) U/L ALT 42 (14-59) U/L Alkaline Phosphatase 91 (46-116) U/L NT-Pro-B Natriuret Pep (0-125) pg/mL Total Protein 7.9 (6.4-8.2) g/dl Albumin 3.1 L (3.4-5.0) g/dl Globulin 4.8 gm/dL Albumin/Globulin Ratio 0.7 L (1-2) 01/04/20 01/04/20 Range/Units 00:57 00:57 WBC (3.98-10.04) K/mm3 RBC (3.98-5.22) M/mm3 Hgb (11.2-15.7) gm/dl Hct (34.1-44.9) % MCV (79.4-94.8) fl MCH (25.6-32.2) pg MCHC (32.2-35.5) g/dl RDW Std Deviation (36.4-46.3) fL Plt Count (182-369) K/mm3 MPV (9.4-12.3) fl Neutrophils % (Manual) (40-60) % Band Neutrophils % (0-10) % Lymphocytes % (Manual) (20-40) % Atypical Lymphs % % Monocytes % (Manual) (2-10) % Eosinophils % (Manual) (0.7-5.8) % Basophils % (Manual) (0.1-1.2) Platelet Estimate RBC Morph Comment PT (9.7-12.0) SECONDS INR APTT (22-31) SECONDS D-Dimer, Quantitative (0.19-0.50) mg/L Sodium (136-145) mEq/L Potassium (3.5-5.1) mEq/L Chloride (98-107) mEq/L Carbon Dioxide (21-32) mEq/L Anion Gap (5-15) BUN (7-18) mg/dL Creatinine (0.55-1.02) mg/dL Est Cr Clr Drug Dosing mL/min Estimated GFR (MDRD) (>60) mL/min BUN/Creatinine Ratio (14-18) Glucose (74-106) mg/dL Lactic Acid 1.4 (0.4-2.0) mmol/L Calcium (8.5-10.1) mg/dL Total Bilirubin (0.2-1.0) mg/dL AST (15-37) U/L ALT (14-59) U/L Alkaline Phosphatase (46-116) U/L NT-Pro-B Natriuret Pep 44 (0-125) pg/mL Total Protein (6.4-8.2) g/dl Albumin (3.4-5.0) g/dl Globulin gm/dL Albumin/Globulin Ratio (1-2) Meds: Medications Discontinued Medications Generic Name Dose Route Start Last Admin Trade Name Freq PRN Reason Stop Dose Admin Azithromycin 500 mg 01/04/20 00:11 01/04/20 00:42 Zithromax PO 01/04/20 00:12 500 mg ONETIME STA Administration Ceftriaxone Sodium 2 gm/ 100 mls @ 200 mls/hr 01/04/20 00:10 01/04/20 00:42 Sodium Chloride IV 01/04/20 00:39 200 mls/hr ONETIME STA Administration - Re-Assessments/Exams Free Text/Narrative Re-Assessment/Exam: 01/03/20 23:03 As above, the patient developed a fever, followed by a cough, followed by dyspnea, all after meeting with a friend from [facility] 2 weeks ago. The patient states that her friend was not ill when they met, and she does not know if her friend became ill, however, I think it is not unreasonable to check for COVID-19, under the circumstances. In addition, I have ordered an influenza swab; the patient tested negative on Tuesday, however, that was when she had been symptomatic for less than 24 hours, which increases the test's false- negative rate. Lastly, I have ordered a chest x-ray. Provided her chest x-ray does not show an infiltrate, blood work should not be necessary. 01/03/20 23:55 Two-view chest radiograph reviewed. The cardiac silhouette is within normal limits. No pulmonary vascular congestion. No pleural effusion. There is a right lower lobe infiltrate. No pneumothorax. The patient's influenza swab has returned negative. Given the nature of this case, I have asked to have the chest x-ray formally read by Radiology. In the meantime, I have ordered a CBC, CMP, lactic acid level, D-dimer, coags, and 2 sets of blood cultures. 01/04/20 00:07 2-view chest x-ray is read by Abhilash as "Moderate right lower lobe airspace opacity, consistent with pneumonia. Clinical correlation and follow-up radiographs to clearance recommended. Once the blood cultures have been obtained, the patient will be given IV Rocephin and oral azithromycin. 01/04/20 02:06 Test results discussed with the patient. The patient CBC is remarkable for a WBC count mildly elevated at 10.45, but with 0% bandemia. The remainder of her CBC is unremarkable. Her CMP is remarkable for a blood glucose slightly elevated 113, and is otherwise unremarkable. Her lactic acid level is within normal limits at 1.4. Her D-dimer is mildly elevated at 0.90. Her coags are unremarkable. The patient's D-dimer, while elevated, is not consistent with a pulmonary embolus. I offered to perform a CT angiogram of her chest, however, she declined. I will discharge her home with prescriptions for amoxicillin and azithromycin, along with a note for work. Someone from the [facility] will contact her with her COVID-19 test result. She is to remain at home until then. Departure - Departure Time of Disposition: 02:09 Disposition: Home, Self-Care 01 Condition: Good Clinical Impression: Right lower lobe pneumonia - Discharge Information *PRESCRIPTION DRUG MONITORING PROGRAM REVIEWED*: Not Applicable *COPY OF PRESCRIPTION DRUG MONITORING REPORT IN PATIENT MONICA: Not Applicable Prescriptions: Amoxicillin 2 tab PO Q8H #60 tablet Azithromycin 1 tab PO QPM #4 tablet Instructions: Community-Acquired Pneumonia, Adult, [id number] Referrals: Shelly Dickerson MD [Primary Care Provider] - Forms: ED Department Discharge, ED Return to Work/School Form Additional Instructions: You were seen in the emergency room for a fever, cough, and shortness of breath. Work-up in the ER included blood work, 2 sets of blood cultures, an influenza swab, a COVID-19 swab, and a chest x-ray. Your chest x-ray found that you have a right lower lobe pneumonia. The remainder of your work-up was unremarkable, however, the COVID-19 test results will not be known until later today. You were treated with antibiotics in the ER, and prescriptions for 2 antibiotics , amoxicillin and azithromycin, have been sent to the [facility] located in the [facility] grocery store. Take 1 tablet of amoxicillin every 8 hours, as prescribed. Take 1 tablet of azithromycin every evening, starting this evening, Tuesday, 01/03, as prescribed. Finish both prescriptions unless told otherwise by your doctor. Someone from the [place] [facility] will contact you with your COVID-19 test result. Until then, you are to remain at home. If any other problems, please do not hesitate to return to the ER. Sepsis Event Note - Evaluation Sepsis Screening Result: No Definite Risk - Focused Exam Vital Signs: Vital Signs Temp Pulse Resp BP Pulse Ox 01/03/20 22:10 37.7 C 104 H 20 131/92 H 96 Date Exam was Performed: 01/04/20 Time Exam was Performed: 04:34 - My Orders Last 24 Hours: My Active Orders 01/03/20 23:02 Chest 2V [CR] Stat Isolation [COMM] Routine 01/03/20 23:09 CORONAVIRUS (COVID-19) PCR [MREF] Stat 01/03/20 23:59 Blood Culture x2 Reflex Set [OM.PC] Stat 01/04/20 00:27 CULTURE BLOOD [BC] Stat 01/04/20 00:57 CULTURE BLOOD [BC] Stat - Assessment/Plan Last 24 Hours: My Active Orders 01/03/20 23:02 Chest 2V [CR] Stat Isolation [COMM] Routine 01/03/20 23:09 CORONAVIRUS (COVID-19) PCR [MREF] Stat 01/03/20 23:59 Blood Culture x2 Reflex Set [OM.PC] Stat 01/04/20 00:27 CULTURE BLOOD [BC] Stat 01/04/20 00:57 CULTURE BLOOD [BC] Stat
[2020-01-04] MEDS ORDERED: cefTRIAXone 2 GM in Sodium Chloride 0.9% 100 ML IV STA (00:10)
[2020-01-04] MEDS ORDERED: Azithromycin 250 MG Tab PO STA (00:11)
--- NOTE | 2020-01-04 07:50 | CR ---
Chest: Two views of the chest were obtained. Comparison: Prior chest x-ray of 10/31/17. Focal density within the right lung base is noted. Lungs otherwise are clear. Heart size and mediastinum are normal. Bony structures are unremarkable. Impression: 1. Density within the right lung base most likely representing pneumonia. Diagnostic code #3 Study was dictated in MDT
== END 2020-01-04 02:31 | disposition home or self-care (01) ==
LOC: JD.ED 22:02
DX: J18.9 Pneumonia, unspecified organism (principal); Z88.8 Allergy status to other drugs, medicaments and biological substances; Z79.899 Other long term (current) drug therapy; Z20.828 Contact with and (suspected) exposure to other viral communicable diseases
CPT/HCPCS: 36415; 71046; 80053; 83605; 83880; 85007; 85027; 85379; 85610; 85730; 87040; 87635; 87804; 96365; 99285; A9270; J0696; J7050; 99283; U0001; U0002

== ENCOUNTER 2021-10-23 08:28 | Emergency (ER) | payer BC, MEDICAID ==
[2021-10-23 08:56] VITALS: BP 126/82; PULSE 71
[2021-10-23] MEDS ORDERED: HYDROmorphone 1 MG/ML Syringe IVPUSH ONE ×2 (09:47→11:38)
[2021-10-23] MEDS ORDERED: Ondansetron 4 MG/2 ML SDV IVPUSH ONE (09:47)
--- NOTE | 2021-10-23 09:58 | EDM.PDOC ---
<Luann Segovia - Last Filed: 10/23/21 12:18> ED HPI GENERAL MEDICAL PROBLEM - General Chief Complaint: Genitourinary Problem Stated Complaint: LOWER BACK PAIN Time Seen by Provider: 10/23/21 09:30 - History of Present Illness INITIAL COMMENTS - FREE TEXT/NARRATIVE: Mrs. Fatoumata Cardoza is a 41-year-old who presents for lower back pain. She is accompanied by her , Bernabe. Her pain started this morning. She has tried Motrin with no change. She rated the pain as a 9/10 and describes it as "crampy and achy". It starts in her left lower back and wraps around to the front. Additional symptoms include headache, cough, nausea, and diarrhea that all started this morning. She is unsure if she has had any fevers or chills as it as been so cold outside. Her urine became odorous 2 days ago. She denies blood in her urine or stool or burning with urination. She has been able to drink adequate water. About 3 weeks ago a mass was discovered on MRI on her left kidney. She is scheduled for a follow-up assessment on 11/18/2021. She received a spinal injection Tuesday for her back deterioration. She had gastric bypass surgery 10+ years ago. Onset: Today, Sudden Onset Date: 10/23/21 (THe pain started when she woke up this morning. ) Duration: Hour(s): Location: Reports: Abdomen, Back Quality: Reports: Ache, Other (Cramp) Severity: Moderate Improves with: Reports: None Worsens with: Reports: None Lower Back Pain Score (Numeric/FACES): 9 - Related Data Allergies Allergy/AdvReac Type Severity Reaction Status Date / Time metoclopramide HCl Allergy Swelling Verified 10/23/21 08:54 [From Reglan] Home Meds: Home Meds Cefdinir [Omnicef] 300 mg PO BID #18 cap 10/23/21 [Rx] oxyCODONE HCl/Acetaminophen [Percocet 5-325 mg Tablet] 1 - 2 each PO Q4H PRN #20 tablet 10/23/21 [Rx] ED ROS GENERAL - Review of Systems Review Of Systems: Comprehensive ROS is negative, except as noted in HPI. Constitutional: Reports: No Symptoms HEENT: Reports: No Symptoms Respiratory: Reports: No Symptoms Cardiovascular: Reports: No Symptoms Endocrine: Reports: No Symptoms GI/Abdominal: Reports: Abdominal Pain, Diarrhea, Flatus, Nausea : Reports: Other (odor). Denies: Dysuria Musculoskeletal: Reports: Back Pain Skin: Reports: No Symptoms Psychiatric: Reports: No Symptoms Hematologic/Lymphatic: Reports: No Symptoms Immunologic: Reports: No Symptoms ED EXAM, RENAL/ - Physical Exam Exam: See Below Exam Limited By: No Limitations General Appearance: Alert, WD/WN, No Apparent Distress, Other (Temp 97.2, Pulse 71, RR 14, BP 126/82, SpO2 98% on room air) Eye Exam: Bilateral Eye: EOMI, PERRL Ears: Normal External Exam, Hearing Grossly Normal Nose: Normal Inspection Throat/Mouth: Normal Inspection, No Airway Compromise Head: Atraumatic, Normocephalic Neck: Normal Inspection, Supple, Non-Tender, Full Range of Motion Respiratory/Chest: No Respiratory Distress, Lungs Clear, Normal Breath Sounds, No Accessory Muscle Use, Chest Non-Tender Cardiovascular: Regular Rate, Rhythm, No Edema GI/Abdominal: Normal Bowel Sounds, Soft, Non-Tender, No Distention Back Exam: CVA Tenderness (L) Extremities: Normal Inspection, Normal Range of Motion, Non-Tender Neurological: Alert, Oriented, Normal Cognition, No Motor/Sensory Deficits Psychiatric: Normal Affect, Normal Mood Skin Exam: Warm, Dry, Intact, Normal Color, No Rash Lymphatic: No Adenopathy Course - Re-Assessments/Exams Free Text/Narrative Re-Assessment/Exam: 10/23/21 09:45 Initial orders include 5%Dextrose-NaCl 0.9% IV, 1mg Dilaudid, 4mg Zofran, UA with culture, CBC, CMP, CRP, Mg, and CT abdomen/Pelvis with contrast. 10/23/21 10:10 UA results: 2+ protein, 2+ blood, 3+ Leukocytes Esterase, 10 - 20 RBC, 20 - 30 WBC. 2g Rocephin IV given. Departure - Departure Disposition: Home, Self-Care 01 Clinical Impression: Upper urinary tract infection, Pyelonephritis of left kidney, Renal mass, left - Discharge Information Prescriptions: Cefdinir [Omnicef] 300 mg PO BID #18 cap oxyCODONE HCl/Acetaminophen [Percocet 5-325 mg Tablet] 1 - 2 each PO Q4H PRN #20 tablet PRN Reason: pain relief. Instructions: Pyelonephritis, Adult, [id number] Referrals: PCP,None [Primary Care Provider] - Forms: ED Department Discharge Additional Instructions: Evaluation in the emergency room today in regards to gradually worsening left flank and back pain over the last 36 hours or so. You have chronic low back pain due to degenerative arthritis and disc disease in the lumbar spine and you did recently receive a epidural injection of steroids in this area. The urine test done today is strongly positive for an infection and urine culture has been ordered. Your white count is elevated at 16.1 partially from the steroids you were given yesterday but also from infection. No other abnormalities were appreciated in the lab test. The CT exam does reveal evidence of a mass 2 cm in size within the left kidney and cannot tell by looking whether this is malignant or benign. I would suspect it is likely benign but only a biopsy can prove this. Therefore it is very important to keep your appoint with urology services in early November as planned. You were treated today with intravenous pain medication and anti-inflammatory medicine. You were given first dose of antibiotic called Rocephin 2 g intravenously. You will need to start oral antibiotic Omnicef 300 mg twice daily for the next 9 days with the first tablet taken at bedtime tonight. May use Percocet tablets 5/325 mg strength 1 or 2 every 4-6 hours as needed for relief of back pain. You may well need continued use Motrin 600 mg every 6 hours to relieve fever and pain and inflammation. Expect marked improvement in your left flank pain over the next 48 to 72 hours as the infection comes under control. Continue to drink plenty of fluids and diet as tolerated. <Tom Carrillo - Last Filed: 10/23/21 12:50> ED HPI GENERAL MEDICAL PROBLEM - General Source of Information: Reports: Patient History Limitations: Reports: No Limitations Lower Back Pain Score (Numeric/FACES): 9 Past Medical History - Past Health History Medical/Surgical History: Denies Medical/Surgical History Gastrointestinal History: Reports: GERD, Other (See Below) Other Gastrointestinal History: gastric bypass Genitourinary History: Reports: Renal Calculus [employer] History: Reports: Psychiatric History: Reports: ADHD (untreated), Anxiety (untreated), Depression (untreated) Endocrine/Metabolic History: Reports: Hypothyroidism (untreated), Obesity/BMI 30+ - Past Surgical History HEENT Surgical History: Reports: Adenoidectomy, Oral Surgery (all lower teeth extracted), Tonsillectomy GI Surgical History: Reports: Bariatric Procedure (gastric bypass 2003), Cholecystectomy (1995) Female Surgical History: Reports: Section (x 2) Social & Family History - Family History Family Medical History: No Pertinent Family History Cardiac: Reports: Hypertension - Caffeine Use Caffeine Use: Reports: Coffee - Living Situation & Occupation Living situation: Reports: , with Spouse, with Family (2 kids) Occupation: Employed ([employer]) Course - Vital Signs Last Recorded V/S: Last Vital Signs Temp 36.2 C 10/23/21 08:49 Pulse 71 10/23/21 08:49 Resp 14 10/23/21 08:49 BP 126/82 10/23/21 08:49 Pulse Ox 98 10/23/21 08:49 - Orders/Labs/Meds Orders: Active Orders 24 hr Category Date Time Status CULTURE URINE [MREF] Stat Lab 10/23/21 10:30 Received Dextrose 5%-0.9% NaCl [Dextrose 5%-Normal Saline] 1,000 Med 10/23/21 10:00 Active ml IV ASDIRECTED Ketorolac [Toradol] Med 10/23/21 11:45 Active 30 mg IVPUSH ONETIME Sodium Chloride 0.9% [Saline Flush] Med 10/23/21 10:08 Active 10 ml FLUSH ONETIME PRN cefTRIAXone [Rocephin] 2 gm Med 10/23/21 10:15 Active Sodium Chloride 0.9% [Normal Saline AdvBag] 100 ml IV Q24H Medication Orders Dextrose/Sodium Chloride (Dextrose 5%-Normal Saline) 1,000 mls @ 250 mls/hr IV ASDIRECTED EDER Last Admin: 10/23/21 10:36 Dose: 250 mls/hr Documented by: GAY Ceftriaxone Sodium 2 gm/ (Sodium Chloride) 100 mls @ 200 mls/hr IV Q24H [facility] Last Admin: 10/23/21 10:39 Dose: 200 mls/hr Documented by: GAY Ketorolac Tromethamine (Ketorolac 30 Mg/Ml Sdv) 30 mg IVPUSH ONETIME EDER Sodium Chloride (Sodium Chloride 0.9% 10 Ml Syringe) 10 ml FLUSH ONETIME PRN PRN Reason: IV FLUSH Last Admin: 10/23/21 10:18 Dose: 10 ml Documented by: KALLIE Labs: Laboratory Tests 10/23/21 10/23/21 10/23/21 Range/Units 08:55 09:48 10:40 WBC 16.14 H (3.98-10.04) K/mm3 RBC 4.31 (3.98-5.22) M/mm3 Hgb 13.1 (11.2-15.7) gm/dl Hct 41.1 (34.1-44.9) % MCV 95.4 H D (79.4-94.8) fl MCH 30.4 (25.6-32.2) pg MCHC 31.9 L (32.2-35.5) g/dl RDW Std Deviation 44.9 (36.4-46.3) fL Plt Count 333 (182-369) K/mm3 MPV 9.1 L (9.4-12.3) fl Neut % (Auto) 81.3 H (34.0-71.1) % Lymph % (Auto) 8.9 L (19.3-51.7) % [place] % (Auto) 8.9 (4.7-12.5) % Eos % (Auto) 0.4 L (0.7-5.8) Baso % (Auto) 0.2 (0.1-1.2) % Neut # (Auto) 13.12 H (1.56-6.13) K/mm3 Lymph # (Auto) 1.44 (1.18-3.74) K/mm3 [place] # (Auto) 1.44 H (0.24-0.36) K/mm3 Eos # (Auto) 0.06 (0.04-0.36) K/mm3 Baso # (Auto) 0.03 (0.01-0.08) K/mm3 Sodium 138 (136-145) mEq/L Potassium 4.1 (3.5-5.1) mEq/L Chloride 103 (98-107) mEq/L Carbon Dioxide 25 (21-32) mEq/L Anion Gap 14.1 (5-15) BUN 16 (7-18) mg/dL Creatinine 0.7 (0.55-1.02) mg/dL Est Cr Clr Drug Dosing 85.72 mL/min Estimated GFR (MDRD) > 60 (>60) mL/min BUN/Creatinine Ratio 22.9 H (14-18) Glucose 91 (70-99) mg/dL Calcium 8.5 (8.5-10.1) mg/dL Magnesium 1.9 (1.8-2.4) mg/dL Total Bilirubin 0.4 (0.2-1.0) mg/dL AST 17 (15-37) U/L ALT 34 (14-59) U/L Alkaline Phosphatase 104 (46-116) U/L C-Reactive Protein <0.2 (<1.0) mg/dL Total Protein 7.5 (6.4-8.2) g/dl Albumin 3.6 (3.4-5.0) g/dl Globulin 3.9 gm/dL Albumin/Globulin Ratio 0.9 L (1-2) Urine Color Yellow (Yellow) Urine Appearance Clear (Clear) Urine pH 6.5 (5.0-8.0) Ur Specific [place] 1.020 (1.005-1.030) Urine Protein 2+ H (Negative) Urine Glucose (UA) Negative (Negative) Urine Ketones Negative (Negative) Urine Occult Blood 2+ H (Negative) Urine Nitrite Negative (Negative) Urine Bilirubin Negative (Negative) Urine Urobilinogen 0.2 (0.2-1.0) Ur Leukocyte Esterase 3+ H (Negative) Urine RBC 10-20 H (0-5) /hpf Urine WBC 20-30 H (0-5) /hpf Ur Squamous Epith Cells 0-5 (0-5) /hpf Urine Bacteria Few (FEW) /hpf Urine Mucus Not seen (FEW) /hpf Meds: Medications Generic Name Dose Route Start Last Admin Trade Name Freq PRN Reason Stop Dose Admin Dextrose/Sodium Chloride 1,000 mls @ 250 mls/hr 10/23/21 10:00 10/23/21 10:36 Dextrose 5%-Normal Saline IV 250 mls/hr ASDIRECTED EDER Administration Ceftriaxone Sodium 2 gm/ 100 mls @ 200 mls/hr 10/23/21 10:15 10/23/21 10:39 Sodium Chloride IV 200 mls/hr Q24H EDER Administration Ketorolac Tromethamine 30 mg 10/23/21 11:45 Ketorolac 30 Mg/Ml Sdv IVPUSH ONETIME EDER Sodium Chloride 10 ml 10/23/21 10:08 10/23/21 10:18 Sodium Chloride 0.9% 10 Ml Syringe FLUSH 10 ml ONETIME PRN Administration IV FLUSH Discontinued Medications Generic Name Dose Route Start Last Admin Trade Name Rodrigueq PRN Reason Stop Dose Admin Hydromorphone HCl 1 mg 10/23/21 09:47 10/23/21 10:34 Hydromorphone 1 Mg/Ml Syringe IVPUSH 10/23/21 09:48 1 mg ONETIME ONE Administration Hydromorphone HCl 1 mg 10/23/21 11:38 Hydromorphone 1 Mg/Ml Syringe IVPUSH 10/23/21 11:39 ONETIME ONE Iopamidol 50 ml 10/23/21 10:08 10/23/21 10:18 Iopamidol 612 Mg/Ml 50 Ml Sdv IVPUSH 10/23/21 10:09 25 ml ONETIME ONE Administration Iopamidol 100 ml 10/23/21 10:08 10/23/21 10:18 Iopamidol 612 Mg/Ml 100 Ml Bottle IVPUSH 10/23/21 10:09 100 ml ONETIME ONE Administration Ondansetron HCl 4 mg 10/23/21 09:47 10/23/21 10:34 Ondansetron 4 Mg/2 Ml Sdv IVPUSH 10/23/21 09:48 4 mg ONETIME ONE Administration - Re-Assessments/Exams Free Text/Narrative Re-Assessment/Exam: 10/23/21 11:51 White count is elevated at 16.14 with a left shift of 81.3% neutrophils. Hemoglobin is 13.1 with hematocrit of 41.1. MCV is 95.4. Platelet count is normal at 333,000. Sodium was 138 with a potassium of 4.1. Chloride is 103 with a bicarb of 25. Anion gap is 14.1. BUN is 16 with a creatinine of 0.7 and a GFR greater than 60. Glucose is 91. Calcium is 8.5 magnesium is 1.9 liver function is normal C-reactive protein was less than 0.2 total protein 7.5 with an albumin fraction of 3.6. As previous tightly documented the urinalysis shows 2+ proteinuria 2+ occult blood 3+ leukocyte esterase with 10-20 RBCs per high-power field and 20-30 white blood cells per high-power field. Urine culture has been orderedCT of the abdomen pelvis with IV contrast has been completed. Findings reveal the lower chest appear normal. Hepatobiliary system reveals absence of the gallbladder. Evidence of previous bariatric surgery with numerous navarro in the left upper quadrant. Pancreas appears normal. Spleen is normal adrenal glands appear normal. Kidneys and bladder. No precontrast arterial phase images are available. There is a posterior renal cortex mass 2 x 1.6 x 1.5 cm lesion. On the nephrographic phase images that has some fluid density within it which appear to fill with contrast on the delayed images this could be a benign or malignant cortical lesion. Right renal cortical 5 mm fat density lesion is most likely an angiomyolipoma. Ureters and bladder appear otherwise normal. Gastric bypass and small bowel and stenosis as mentioned above. No obstruction normal-appearing colon. Vasculature reveals a retroaortic left renal vein. Patent mesenteric vasculature. The SMV is located anterior to the SMA and the mesenteric vessels are swirling. These findings can be seen with malrotation however the colon and small bowel appear to be appropriately located. This could be postoperative change. Musculoskeletal reveals diffuse lumbosacral disc degeneration. Patient is having increased pain at this time. She will be given Dilaudid 1 mg IV and Toradol 30 mg IV for further pain relief. Departure - Departure Time of Disposition: 12:43 Condition: Fair - Discharge Information *PRESCRIPTION DRUG MONITORING PROGRAM REVIEWED*: Not Applicable *COPY OF PRESCRIPTION DRUG MONITORING REPORT IN PATIENT MONICA: Not Applicable Sepsis Event Note (ED) - Focused Exam Vital Signs: Vital Signs Temp Pulse Resp BP Pulse Ox 10/23/21 08:49 36.2 C 71 14 126/82 98 - My Orders Last 24 Hours: My Active Orders 10/23/21 10:00 Dextrose 5%-0.9% NaCl [Dextrose 5%-Normal Saline] 1,000 ml IV ASDIRECTED 10/23/21 10:08 Sodium Chloride 0.9% [Saline Flush] 10 ml FLUSH ONETIME PRN 10/23/21 10:15 cefTRIAXone [Rocephin] 2 gm Sodium Chloride 0.9% [Normal Saline AdvBag] 100 ml IV Q24H 10/23/21 10:30 CULTURE URINE [MREF] Stat 10/23/21 11:45 Ketorolac [Toradol] 30 mg IVPUSH ONETIME - Assessment/Plan Last 24 Hours: My Active Orders 10/23/21 10:00 Dextrose 5%-0.9% NaCl [Dextrose 5%-Normal Saline] 1,000 ml IV ASDIRECTED 10/23/21 10:08 Sodium Chloride 0.9% [Saline Flush] 10 ml FLUSH ONETIME PRN 10/23/21 10:15 cefTRIAXone [Rocephin] 2 gm Sodium Chloride 0.9% [Normal Saline AdvBag] 100 ml IV Q24H 10/23/21 10:30 CULTURE URINE [MREF] Stat 10/23/21 11:45 Ketorolac [Toradol] 30 mg IVPUSH ONETIME
[2021-10-23] MEDS ORDERED: Dextrose 5%-0.9% NaCl 1,000 ML IV SCH (10:00)
[2021-10-23] MEDS ORDERED: Iopamidol 612 MG/ML 100 ML Bottle IVPUSH ONE (10:08)
[2021-10-23] MEDS ORDERED: Sodium Chloride 0.9% 10 ML Syringe FLUSH PRN (10:08)
[2021-10-23] MEDS ORDERED: Iopamidol 612 MG/ML 50 ML SDV IVPUSH ONE (10:08)
[2021-10-23] MEDS ORDERED: cefTRIAXone 2 GM in Sodium Chloride 0.9% 100 ML IV SCH (10:15)
--- NOTE | 2021-10-23 11:44 | CT ---
EXAM: CT ABDOMEN PELVIS WITH CONTRAST LOCATION: [facility] [place] DATE/TIME: 10/23/2021 10:10 AM INDICATION: Lt flank pain mri done at another facility 3 weeks ago suggested a lt renal mass has pyelonephritis clinically COMPARISON: No prior study available. TECHNIQUE: CT scan of the abdomen and pelvis was performed following injection of IV contrast. Multiplanar reformats were obtained. Dose reduction techniques were used. CONTRAST: isovue [id number] FINDINGS: LOWER CHEST: Normal. HEPATOBILIARY: Absent gallbladder. PANCREAS: Normal. SPLEEN: Normal. ADRENAL GLANDS: Normal. KIDNEYS/BLADDER: No precontrast or arterial phase images available. There is a posterior renal cortex 2 x 1.6 x 1.5 cm lesion. On the nephrographic phase images it has some fluid density areas which appear to fill and with contrast on the delayed images. This could be a benign or malignant cortical lesion. Right renal cortical 5 mm fat density lesion is most likely an angiomyolipoma. Ureters and bladder appear normal. BOWEL: Gastric bypass and small bowel anastomosis. No obstruction. Normal- appearing colon. LYMPH NODES: Normal. VASCULATURE: Retroaortic left renal vein. Patent mesenteric vessels. The SMV is located anterior to the SMA and the mesenteric vessels are swirling. These findings can be seen with malrotation, however the colon and small bowel appear appropriately located. Therefore this could be postoperative change. PELVIC ORGANS: Normal. MUSCULOSKELETAL: Lumbosacral disc degeneration. IMPRESSION: 1. Left renal 2 cm indeterminate mass. This could be further evaluated with MRI kidneys. 2. 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 3. Swirling mesenteric vessels which may be postoperative change from the gastric bypass. SIGNED BY: Luis Wilkinson MD 10/23/2021 12:14 PM JAQUAN
[2021-10-23] MEDS ORDERED: Ketorolac 30 MG/ML SDV IVPUSH SCH (11:45)
== END 2021-10-23 13:30 | disposition home or self-care (01) ==
LOC: JD.ED 08:28
DX: N39.0 Urinary tract infection, site not specified (principal); N12 Tubulo-interstitial nephritis, not specified as acute or chronic; N28.89 Other specified disorders of kidney and ureter; Z88.8 Allergy status to other drugs, medicaments and biological substances; Z20.822 Contact with and (suspected) exposure to COVID-19
CPT/HCPCS: 36415; 74177; 80053; 81001; 83735; 85025; 86140; 87086; 87088; 87186; 87635; 96365; 96375; 96376; 99284; J0696; J1170; J2405; J7042; Q9967; U0002

== ENCOUNTER 2021-12-17 13:03 | Emergency (ER) | payer BC, MEDICAID ==
[2021-12-17 13:12] VITALS: BP 122/87; PULSE 72
[2021-12-17] MEDS ORDERED: LORazepam 2 MG/ML SDV IM ONE (14:08)
[2021-12-17] MEDS ORDERED: Promethazine 25 MG/ML SDV IM ONE (14:10)
== END 2021-12-17 16:00 | disposition home or self-care (01) ==
LOC: JD.ED 13:03
DX: R42 Dizziness and giddiness (principal); U09.9 Post COVID-19 condition, unspecified; E03.9 Hypothyroidism, unspecified; K21.9 Gastro-esophageal reflux disease without esophagitis; E66.9 Obesity, unspecified; Z68.30 Body mass index [BMI] 30.0-30.9, adult; Z88.8 Allergy status to other drugs, medicaments and biological substances
CPT/HCPCS: 96372; 97162; 99283; J2060; J2550

== ENCOUNTER 2022-04-12 10:08 | Emergency (ER) | payer BC ==
[2022-04-12] MEDS ORDERED: Sodium Chloride 0.9% 10 ML Syringe FLUSH PRN (11:10)
[2022-04-12] MEDS ORDERED: Alum Hydrox/Mag Hydrox/Simeth 30 ML, Lidocaine 2% 15 ML PO ONE ×2 (11:10)
[2022-04-12] MEDS ORDERED: Ondansetron 4 MG/2 ML SDV IVPUSH ONE (11:11)
[2022-04-12 11:39] LABS: ESTIMATED GFR 109 mL/min (>60)
[2022-04-12 11:49] VITALS: PULSE 75
[2022-04-12 12:37] LABS: CORONAVIRUS COVID-19 NAA NEGATIVE (NEGATIVE)
[2022-04-12 13:53] VITALS: BP 116/66
== END 2022-04-12 14:15 | disposition home or self-care (01) ==
LOC: JD.ED 10:08
DX: K21.9 Gastro-esophageal reflux disease without esophagitis (principal); M54.6 Pain in thoracic spine; E03.9 Hypothyroidism, unspecified; E66.9 Obesity, unspecified; Z68.38 Body mass index [BMI] 38.0-38.9, adult; Z79.899 Other long term (current) drug therapy; Z88.8 Allergy status to other drugs, medicaments and biological substances; Z20.822 Contact with and (suspected) exposure to COVID-19
CPT/HCPCS: 0240U; 36415; 71045; 80053; 81003; 83735; 84484; 85025; 85379; 86140; 93005; 96374; 99284; A9270; J2405; J3490; 93010

== ENCOUNTER 2022-04-24 19:38 | Emergency (ER) | payer BC ==
[2022-04-24 20:07] VITALS: BP 112/83; PULSE 100
[2022-04-24] MEDS ORDERED: LORazepam 2 MG/ML SDV IVPUSH STA (20:49)
[2022-04-24] MEDS ORDERED: LORazepam 1 MG Tab PO ONE (21:39)
[2022-04-24] MEDS ORDERED: Magnesium Sulfate/Water 2 GM in Premix Bag 1 BAG IV ONE (22:40)
[2022-04-24] MEDS ORDERED: Acetaminophen/HYDROcodone 325-5 MG Tab PO ONE (23:22)
== END 2022-04-25 01:18 | disposition home or self-care (01) ==
LOC: JD.ED 19:38
DX: E83.42 Hypomagnesemia (principal); R09.89 Other specified symptoms and signs involving the circulatory and respiratory systems; Z88.8 Allergy status to other drugs, medicaments and biological substances; Z86.16 Personal history of COVID-19
CPT/HCPCS: 36415; 36600; 71046; 80053; 81001; 81025; 82803; 83735; 83880; 84443; 84484; 85025; 85379; 93005; 99283; A9270

== ENCOUNTER 2024-08-31 12:19 | Emergency (ER) | payer BC, MEDICAID ==
[2024-08-31] MEDS ORDERED: Sodium Chloride 0.9% 10 ML Syringe FLUSH PRN (12:36)
[2024-08-31] MEDS: diphenhydrAMINE 50 MG/ML SDV IVPUSH ONE (12:50)
[2024-08-31] MEDS: Sodium Chloride 0.9% 10 ML Syringe FLUSH PRN (12:50)
[2024-08-31] MEDS: methylPREDNISolone Sodium Succinate 125 MG/2 ML SDV IVPUSH ONE (12:52)
[2024-08-31 12:59] LABS: BASOPHILS ABSOLUTE AUTO 0.1 K/mm3 (0.0-0.2); BASOPHILS PERCENT AUTO 0.7 % (0.0-1.0); EOSINOPHILS ABSOLUTE AUTO 0.2 K/mm3 (0.0-0.4); EOSINOPHILS PERCENT AUTO 2.8 % (0.0-6.0); HEMATOCRIT 42.1 % (37.0-47.0); HEMOGLOBIN 14.2 gm/dl (12.0-16.0); IMMATURE GRAN ABSOLUTE AUTO 0.02 K/mm3 (0.00-0.05); IMMATURE GRAN PERCENT AUTO 0.2 % (0.0-0.4); LYMPHOCYTES ABSOLUTE AUTO 2.2 K/mm3 (1.0-4.8); LYMPHOCYTES PERCENT AUTO 27.1 % (24.0-44.0); MEAN CORPUSCULAR HEMOGLOBIN 30.5 pg (28.0-32.0); MEAN CORPUSCULAR HGB CONC 33.7 g/dl (32.0-36.0); MEAN CORPUSCULAR VOLUME 90.3 fl (83.0-99.0); MEAN PLATELET VOLUME 9.8 fl (9.4-12.3); MONOCYTES ABSOLUTE AUTO 0.5 K/mm3 (0.0-0.8); MONOCYTES PERCENT AUTO 5.8 % (0.0-8.0); NEUTROPHILS ABSOLUTE AUTO 5.3 K/mm3 (1.8-7.7); NEUTROPHILS PERCENT AUTO 63.4 % (41.0-71.0); PLATELET COUNT,PLT 365 K/mm3 (150-400); RED BLOOD CELL COUNT 4.66 M/mm3 (4.10-5.30); WHITE BLOOD CELL COUNT,WBC 8.28 K/mm3 (3.9-11.3)
[2024-08-31 13:23] LABS: A/G RATIO 0.9 (1-2); ALBUMIN 3.7 g/dl (3.4-5.0); ANION GAP 15.5 (5-15); BILIRUBIN TOTAL 0.4 mg/dL (0.2-1.0); CALCIUM 9.7 mg/dL (8.5-10.1); CREATININE 1.1 mg/dL (0.55-1.02); EST CRCL DRUG DOSING (CG) 45.9 mL/min; MAGNESIUM 1.9 mg/dL (1.8-2.4); PROTEIN TOTAL,TP 7.9 g/dl (6.4-8.2)
[2024-08-31 13:25] LABS: POTASSIUM,K 4.5 mEq/L (3.5-5.1)
[2024-08-31 13:26] LABS: INR 0.98; PROTHROMBIN TIME 10.4 SECONDS (9.7-12.0)
[2024-08-31 13:27] LABS: PTT,PARTIAL THROMBOPLSTIN TIME 26.3 SECONDS (21.7-31.4)
[2024-08-31] MEDS: Sodium Chloride 0.9% 1,000 ML IV ONE ×2 (13:40→14:45)
[2024-08-31 18:38] VITALS: BP 115/96; PULSE 109
== END 2024-08-31 17:49 | disposition home or self-care (01) ==
LOC: JD.ED 12:19
DX: H53.8 Other visual disturbances (principal); E66.9 Obesity, unspecified; Z68.39 Body mass index [BMI] 39.0-39.9, adult; Z90.49 Acquired absence of other specified parts of digestive tract; Z79.899 Other long term (current) drug therapy; Z88.8 Allergy status to other drugs, medicaments and biological substances; Z91.041 Radiographic dye allergy status
CPT/HCPCS: 36415; 70450; 70450-26; 70496; 70496-26; 70498; 70498-26; 80053; 82947; 83735; 84484; 84703; 85025; 85610; 85652; 85730; 86140; 93005; 96361; 96374; 96375; 99284-25; J1200; J2919; J3490; J7030